=== PATIENT | female | born 1970 | race Two or more races ===

== ENCOUNTER 2024-07-21 11:26 | Emergency (ER) | payer OTHER ==
[~2024-07-21] VITALS: Ht 160 cm; Wt 59.4 kg
[~2024-07-21 11:26] MED LIST: CODE1TAB37 PO; KETO10TA2 PO
[2024-07-21] MEDS ORDERED: ATORVASTATIN CA80 MG PO (12:30)
[2024-07-21] MEDS ORDERED: LEVETIRACETAM750 MG PO (12:30)
[2024-07-21] MEDS ORDERED: GABAPENTIN300 M2 PO (12:30)
[2024-07-21] MEDS ORDERED: CLOPIDOGREL BIS75 MG PO (12:30)
[2024-07-21] MEDS ORDERED: FAMOtidine 10 MG/ML (4ML VIAL) IV STA (14:09)
[2024-07-21] MEDS ORDERED: RINGERS SOLUTION,LACTATED 1,000 ML IV STA (14:09)
[2024-07-21] MEDS ORDERED: FAMOTIDINE/PF 20 MG/2 ML VIAL ONE (14:26)
[2024-07-21 15:01] LABS: URINE APPEARANCE Clear; URINE BILIRRUBIN Negative (NEGATIVE); URINE BLOOD NHT; URINE COLOR Yellow; URINE GLUCOSE Negative (NEGATIVE); URINE KETONE Negative (NEGATIVE); URINE LEUKOCYTE Trace; URINE NITRATE Negative; URINE PROTEIN Negative (NEGATIVE)
[2024-07-21 15:02] LABS: MEAN CORPUSCULAR HEMOGLOBIN 27.7 pg (27.00-32.0); MEAN CORPUSCULAR HGB CONC 33.4 g/dl (32.0-36.0); PLATELET COUNT 251 K/uL (150-450); RED CELL DISTRIBUTION WIDTH 13.8 % (11.5-14.5)
[2024-07-21 15:05] LABS: URINE EPITHELIAL CELLS 23.2 uL (0.0-38.8); URINE RBC 32.9 uL (0.0-20.8); URINE WBC 7.5 uL (0.0-23.2)
[2024-07-21 15:28] LABS: ALBUMIN 3.8 gm/dL (3.4-5.0); BILIRUBIN TOTAL 0.37 mg/dL (0.3-1.2); BILIRUBIN,CONJUGATED 0.14 mg/dL (0.0-0.2); BILIRUBIN,UNCONJUGATED 0.23 mg/dL (0.0-0.6); CALCIUM 9.2 mg/dL (8.5-10.1); CREATININE SERUM 0.81 mg/dL (0.55-1.02); GFR 73.68; POTASSIUM 3.8 mEq/L (3.5-5.1); TOTAL PROTEIN 8.1 gm/dL (6.4-8.2)
[2024-07-21] MEDS ORDERED: PEPCID AC20 MG PO (16:56)
[2024-07-21] MEDS ORDERED: CIPRO500 MG PO (16:56)
[2024-07-21] MEDS ORDERED: DICY20TA PO (16:56)
[2024-07-21] MEDS ORDERED: METRONIDAZOLE500 MG PO (16:56)
[2024-07-21] MEDS ORDERED: ZOFRAN8 MG PO (16:56)
== END 2024-07-21 17:19 | disposition home or self-care (01) ==
LOC: ER 11:28
PROVIDERS: General Practice
DX: K52.89 Other specified noninfective gastroenteritis and colitis (principal); G40.802 Other epilepsy, not intractable, without status epilepticus; Z88.0 Allergy status to penicillin; Z88.2 Allergy status to sulfonamides; E86.0 Dehydration; Z86.73 Personal history of transient ischemic attack (TIA), and cerebral infarction without residual deficits
CPT/HCPCS: 36415; 96365; 99282; J3490

== ENCOUNTER 2025-01-14 15:13 | Emergency (ER) | payer OTHER ==
[~2025-01-14] VITALS: Ht 160 cm; Wt 59.0 kg
[~2025-01-14 15:13] MED LIST changes: +ATORVASTATIN CA40 MG PO; +ATORVASTATIN CA80 MG PO; +CIPRO500 MG PO; +CLOPIDOGREL BIS75 MG PO; +DICY20TA PO; +GABAPENTIN300 M2 PO; +GRALISE600 MG; +KEPPRA750 MG; +LEVETIRACETAM750 MG PO; +METRONIDAZOLE500 MG PO; +PEPCID AC20 MG PO; +PLAVIX75 MG; +ZOFRAN8 MG PO
[2025-01-14] MEDS ORDERED: GUAIFENESIN 200 MG/10 ML BLIST.PACK PO STA (16:46)
[2025-01-14] MEDS ORDERED: ACETAMINOPHEN 325 MG TABLET PO STA (16:47)
[2025-01-14 17:11] LABS: COVID-19 AG POSITIVE (NEGATIVE)
[2025-01-14 17:22] LABS: INFLUENZA A AG NEGATIVE (NEGATIVE); INFLUENZA B AG NEGATIVE (NEGATIVE)
== END 2025-01-14 17:41 | disposition home or self-care (01) ==
LOC: ER 15:13
PROVIDERS: General Practice
DX: U07.1 COVID-19 (principal); R05.9 Cough, unspecified; Z88.0 Allergy status to penicillin; Z88.1 Allergy status to other antibiotic agents

== ENCOUNTER 2025-06-08 18:43 | Emergency (ER) | payer OTHER ==
[~2025-06-08] VITALS: Ht 160 cm; Wt 57.2 kg
[2025-06-08] MEDS ORDERED: TRAMADOL HCL 50 MG TABLET PO ONE (20:30)
[2025-06-08] MEDS ORDERED: ACETAMINOPHEN 500 MG GEL..CAP PO ONE ×2 (22:01→22:15)
== END 2025-06-09 00:03 | disposition home or self-care (01) ==
LOC: ER 18:44
DX: S09.8XXA Other specified injuries of head, initial encounter (principal); V49.88XA Car occupant (driver) (passenger) injured in other specified transport accidents, initial encounter; Y93.89 Activity, other specified; Y92.89 Other specified places as the place of occurrence of the external cause; Y99.8 Other external cause status; M54.2 Cervicalgia; R10.20 Pelvic and perineal pain unspecified side; M79.605 Pain in left leg; Z88.0 Allergy status to penicillin